=== PATIENT | female | born 1950 | race Caucasian/White ===

== ENCOUNTER 2023-04-12 18:22 | Inpatient (IN) | payer MEDICARE, OTHER ==
[~2023-04-12] VITALS: Ht 147.3 cm; Wt 80.7 kg
[2023-04-12 20:00] VITALS: BP_SYST 136; BP_SYST 139; BP_DIAS 64; BP_DIAS 94; PULSE 68; PULSE 70; RESP 18; TEMP 97; TEMP 98.1
[2023-04-12] MEDS: ATORVASTATIN CALCIUM 40MG TABLET PO SCH (22:01)
[2023-04-12] MEDS: OXYCODONE HCL 5MG TABLET PO PRN (22:02)
[2023-04-12] MEDS ORDERED: LEVETIRACETAM 500MG PREMIX 100 ML IV SCH (23:00)
[2023-04-12] MEDS ORDERED: ONDANSETRON HCL 4MG/2ML INJ IV PRN (23:00)
[2023-04-13] MEDS ORDERED: LEVETIRACETAM 500 MG in SODIUM CHLORIDE 0.9% 100 ML IV SCH ×2
[2023-04-13] MEDS: METOCLOPRAMIDE HCL 10MG/2ML VIAL IV SCH ×2 (01:08→05:55)
[2023-04-13] MEDS ORDERED: ATOR-2 PO (05:15)
[2023-04-13] MEDS ORDERED: ASPI-1406 PO (05:15)
[2023-04-13] MEDS ORDERED: LORA10TA7 PO (05:15)
[2023-04-13] MEDS ORDERED: LISI20TA31 PO (05:15)
[2023-04-13] MEDS ORDERED: MULT-622 PO (05:15)
[2023-04-13] MEDS ORDERED: ALEN70SO4 PO (05:15)
[2023-04-13] MEDS: OXYCODONE HCL 5MG TABLET PO PRN ×2 (06:04→18:31)
[2023-04-13 06:51] LABS: BASOPHILS % 0.4 % (0.0-2.0); EOSINOPHILS % 2.9 % (0.0-5.0); HEMATOCRIT. 38.8 % (36.0-48.0); HEMOGLOBIN. 13.4 g/dL (12.0-16.0); LYMPHOCYTES % 15.5 % (20.0-50.0); MEAN CORPUSCULAR HEMOGLOBIN 32.7 pg (28.0-32.0); MEAN CORPUSCULAR VOLUME 94.7 fL (81.0-99.0); MEAN PLATELET VOLUME 10.1 fl (7.4-10.4); MONOCYTES % 13.4 % (2.0-8.0); NEUTROPHILS % 67.8 % (40.0-76.0); PLATELET 181 x1000/uL (130-400); RED CELL DISTRIBUTION WIDTH 13.4 % (11.6-14.6)
[2023-04-13 08:00] VITALS: BP 115/87; PULSE 70; RESP 18; TEMP 97.3
[2023-04-13 08:02] LABS: CHLORIDE 99 mEq/L (98-107)
[2023-04-13] MEDS: LEVETIRACETAM 500MG TABLET PO SCH ×2 (09:16→21:11)
[2023-04-13] MEDS: ACETAMINOPHEN 325MG TABLET PO PRN (09:18)
[2023-04-13] MEDS: LISINOPRIL 40MG TABLET PO SCH (09:18)
[2023-04-13] MEDS ORDERED: NALOXONE HCL 0.4MG/ML VIAL IV PRN (14:30)
[2023-04-13 20:00] VITALS: BP 144/76; PULSE 81; RESP 18; TEMP 97.7
[2023-04-13] MEDS: ATORVASTATIN CALCIUM 40MG TABLET PO SCH (21:11)
[2023-04-14] MEDS: METOCLOPRAMIDE HCL 5MG TABLET PO PRN (02:45)
[2023-04-14] MEDS: OXYCODONE HCL 5MG TABLET PO PRN ×3 (02:47→18:59)
[2023-04-14 08:00] VITALS: BP 131/64; PULSE 64; RESP 20; TEMP 97.1
[2023-04-14] MEDS: LEVETIRACETAM 500MG TABLET PO SCH ×2 (08:12→21:19)
[2023-04-14] MEDS: LISINOPRIL 40MG TABLET PO SCH (08:12)
[2023-04-14 20:00] VITALS: BP 122/67; PULSE 66; RESP 17; TEMP 97.1
[2023-04-14] MEDS: ONDANSETRON HCL 4MG TABLET PO PRN (21:19)
[2023-04-14] MEDS: ATORVASTATIN CALCIUM 40MG TABLET PO SCH (21:19)
[2023-04-14] MEDS: MIRTAZAPINE 15MG TABLET PO SCH (21:20)
[2023-04-15 08:00] VITALS: BP 118/59; PULSE 71; RESP 14; TEMP 98.1
[2023-04-15] MEDS: LEVETIRACETAM 500MG TABLET PO SCH ×2 (08:39→21:08)
[2023-04-15] MEDS: LISINOPRIL 40MG TABLET PO SCH (08:40)
[2023-04-15] MEDS: OXYCODONE HCL 5MG TABLET PO PRN ×2 (14:08→18:14)
[2023-04-15] MEDS: ONDANSETRON HCL 4MG TABLET PO PRN (14:09)
[2023-04-15] MEDS: LACTULOSE 20G/30ML UDC PO SCH ×2 (16:58→21:08)
[2023-04-15] MEDS: DOCUSATE SODIUM 100MG CAPSULE PO SCH (16:59)
[2023-04-15 20:00] VITALS: BP 95/65; PULSE 88; RESP 19; TEMP 97.4
[2023-04-15] MEDS: ATORVASTATIN CALCIUM 40MG TABLET PO SCH (21:08)
[2023-04-15] MEDS: MIRTAZAPINE 15MG TABLET PO SCH (21:08)
[2023-04-16] MEDS: LACTULOSE 20G/30ML UDC PO SCH (00:39)
[2023-04-16] MEDS: ONDANSETRON HCL 4MG TABLET PO PRN ×2 (05:57→16:16)
[2023-04-16] MEDS: OXYCODONE HCL 5MG TABLET PO PRN ×2 (05:57→16:16)
[2023-04-16 06:46] LABS: CHLORIDE 94 mEq/L (98-107)
[2023-04-16 07:03] LABS: BASOPHILS % 0.4 % (0.0-2.0); EOSINOPHILS % 8.9 % (0.0-5.0); HEMOGLOBIN. 14.6 g/dL (12.0-16.0); LYMPHOCYTES % 16.8 % (20.0-50.0); MEAN CORPUSCULAR HEMOGLOBIN 32.3 pg (28.0-32.0); MEAN CORPUSCULAR VOLUME 94.8 fL (81.0-99.0); MONOCYTES % 13.3 % (2.0-8.0); NEUTROPHILS % 60.6 % (40.0-76.0); RED BLOOD CELL COUNT 4.53 mill/uL (4.2-5.4); RED CELL DISTRIBUTION WIDTH 13.5 % (11.6-14.6)
[2023-04-16 08:00] VITALS: BP 99/70; PULSE 77; RESP 17; TEMP 97.2
[2023-04-16] MEDS: LISINOPRIL 40MG TABLET PO SCH (09:00)
[2023-04-16] MEDS: DOCUSATE SODIUM 100MG CAPSULE PO SCH ×2 (09:30→17:07)
[2023-04-16] MEDS: LEVETIRACETAM 500MG TABLET PO SCH ×4 (09:30→21:03)
[2023-04-16] MEDS ORDERED: LACTULOSE 20G/30ML UDC PO SCH (11:00)
[2023-04-16] MEDS: SODIUM CHLORIDE 0.9% 1,000 ML IV SCH (12:30)
[2023-04-16] MEDS ORDERED: DOCUSATE SODIUM 100MG CAPSULE PO SCH (13:45)
[2023-04-16] MEDS ORDERED: BISACODYL 5MG TABLET PO PRN (13:45)
[2023-04-16 19:58] VITALS: BP 120/101; PULSE 81; RESP 17; TEMP 98
[2023-04-16] MEDS: MIRTAZAPINE 15MG TABLET PO SCH (21:04)
[2023-04-16] MEDS: ATORVASTATIN CALCIUM 40MG TABLET PO SCH (21:04)
[2023-04-17] MEDS: SODIUM CHLORIDE 0.9% 1,000 ML IV SCH ×2 (04:16→22:54)
[2023-04-17] MEDS: OXYCODONE HCL 5MG TABLET PO PRN (07:57)
[2023-04-17] MEDS: ONDANSETRON HCL 4MG TABLET PO PRN (07:57)
[2023-04-17 08:00] VITALS: BP 122/61; PULSE 85; RESP 17; TEMP 97.3
[2023-04-17] MEDS: DOCUSATE SODIUM 100MG CAPSULE PO SCH ×2 (08:22→16:27)
[2023-04-17] MEDS: LISINOPRIL 40MG TABLET PO SCH (08:26)
[2023-04-17] MEDS: ACETAMINOPHEN 325MG TABLET PO PRN (15:06)
[2023-04-17 20:05] VITALS: BP 104/65; PULSE 82; RESP 20; TEMP 97.3
[2023-04-17] MEDS: MIRTAZAPINE 15MG TABLET PO SCH (21:44)
[2023-04-17] MEDS: ATORVASTATIN CALCIUM 40MG TABLET PO SCH (21:45)
[2023-04-18] MEDS: ACETAMINOPHEN 325MG TABLET PO PRN ×2 (01:54→18:22)
[2023-04-18] MEDS: ONDANSETRON HCL 4MG TABLET PO PRN (01:55)
[2023-04-18] MEDS: NA PHOS,M-B/NA PHOS,DI-BA ENEMA 118ML PR PRN (05:10)
[2023-04-18 08:00] VITALS: BP 140/69; PULSE 68; RESP 20; TEMP 97.3
[2023-04-18] MEDS: LEVETIRACETAM 500MG TABLET PO SCH ×2 (08:29→21:49)
[2023-04-18] MEDS: LISINOPRIL 40MG TABLET PO SCH (08:30)
[2023-04-18] MEDS: DOCUSATE SODIUM 100MG CAPSULE PO SCH ×2 (08:30→17:08)
[2023-04-18] MEDS ORDERED: IPRATROPIUM/ALBUTEROL 0.5-3(2.5)MG/3ML NEB HHN PRN (10:30)
[2023-04-18 13:23] VITALS: PULSE 86; RESP 20; O2SAT 95
[2023-04-18] MEDS: IPRATROPIUM/ALBUTEROL 0.5-3(2.5)MG/3ML NEB HHN SCH ×3 (13:23→22:49)
[2023-04-18] MEDS: SODIUM CHLORIDE 0.9% 1,000 ML IV SCH ×2 (17:08→23:39)
[2023-04-18] MEDS: METOCLOPRAMIDE HCL 5MG TABLET PO PRN (18:22)
[2023-04-18] MEDS: ATORVASTATIN CALCIUM 40MG TABLET PO SCH (21:49)
[2023-04-18] MEDS: MIRTAZAPINE 15MG TABLET PO SCH (21:49)
[2023-04-18 22:49] VITALS: PULSE 71; RESP 16; O2SAT 96
[2023-04-19 01:51] VITALS: PULSE 70; RESP 16; O2SAT 96
[2023-04-19] MEDS: IPRATROPIUM/ALBUTEROL 0.5-3(2.5)MG/3ML NEB HHN SCH ×4 (01:51→20:28)
[2023-04-19 08:00] VITALS: BP 113/74; PULSE 85; RESP 18; TEMP 99
[2023-04-19] MEDS: DOCUSATE SODIUM 100MG CAPSULE PO SCH ×2 (09:10→17:00)
[2023-04-19] MEDS: LEVETIRACETAM 500MG TABLET PO SCH ×2 (09:10→21:38)
[2023-04-19] MEDS: LISINOPRIL 40MG TABLET PO SCH (09:11)
[2023-04-19] MEDS ORDERED: NALOXONE HCL 0.4MG/ML VIAL IV PRN (11:45)
[2023-04-19 14:47] LABS: CHLORIDE 103 mEq/L (98-107)
[2023-04-19] MEDS: ONDANSETRON HCL 4MG TABLET PO PRN ×2 (15:09→21:38)
[2023-04-19] MEDS: OXYCODONE HCL 5MG TABLET PO PRN ×2 (15:10→21:40)
[2023-04-19 20:09] VITALS: BP 120/88; PULSE 89; RESP 17; TEMP 97.5
[2023-04-19] MEDS: ATORVASTATIN CALCIUM 40MG TABLET PO SCH (21:38)
[2023-04-19] MEDS: MIRTAZAPINE 15MG TABLET PO SCH (21:39)
[2023-04-20] MEDS: ACETAMINOPHEN 325MG TABLET PO PRN ×2 (00:55→15:13)
[2023-04-20 08:00] VITALS: BP 103/55; PULSE 72; RESP 17; TEMP 97.7
[2023-04-20] MEDS: LEVETIRACETAM 500MG TABLET PO SCH ×2 (08:56→21:12)
[2023-04-20] MEDS: LISINOPRIL 40MG TABLET PO SCH (08:56)
[2023-04-20] MEDS: DOCUSATE SODIUM 100MG CAPSULE PO SCH ×2 (08:56→18:22)
[2023-04-20] MEDS: ONDANSETRON HCL 4MG TABLET PO PRN (15:12)
[2023-04-20 20:00] VITALS: BP 98/31; PULSE 78; RESP 17; TEMP 97.5
[2023-04-20 21:10] VITALS: BP 124/69; PULSE 70
[2023-04-20] MEDS: ATORVASTATIN CALCIUM 40MG TABLET PO SCH (21:12)
[2023-04-20] MEDS: OXYCODONE HCL 5MG TABLET PO PRN (21:12)
[2023-04-20] MEDS: MIRTAZAPINE 15MG TABLET PO SCH (21:12)
[2023-04-21] MEDS: OXYCODONE HCL 5MG TABLET PO PRN ×2 (06:11→15:11)
[2023-04-21] MEDS: ONDANSETRON HCL 4MG TABLET PO PRN (06:11)
[2023-04-21 08:00] VITALS: BP 103/64; PULSE 64; RESP 18; TEMP 98.1
[2023-04-21] MEDS: DOCUSATE SODIUM 100MG CAPSULE PO SCH ×2 (08:49→16:46)
[2023-04-21] MEDS: LISINOPRIL 40MG TABLET PO SCH (08:52)
[2023-04-21] MEDS: LEVETIRACETAM 500MG TABLET PO SCH ×2 (08:52→21:40)
[2023-04-21] MEDS: LACTULOSE 20G/30ML UDC PO PRN (14:05)
[2023-04-21 20:00] VITALS: BP 106/55; PULSE 80; RESP 18; TEMP 97.5
[2023-04-21] MEDS: ATORVASTATIN CALCIUM 40MG TABLET PO SCH (21:40)
[2023-04-21] MEDS: MIRTAZAPINE 15MG TABLET PO SCH (21:40)
[2023-04-22] MEDS: OXYCODONE HCL 5MG TABLET PO PRN ×2 (01:46→09:20)
[2023-04-22] MEDS: ONDANSETRON HCL 4MG TABLET PO PRN ×2 (01:46→12:38)
[2023-04-22 08:00] VITALS: BP 97/72; PULSE 78; RESP 17; TEMP 97.1
[2023-04-22] MEDS: LISINOPRIL 40MG TABLET PO SCH (09:00)
[2023-04-22] MEDS: DOCUSATE SODIUM 100MG CAPSULE PO SCH ×2 (09:19→18:02)
[2023-04-22] MEDS: LEVETIRACETAM 500MG TABLET PO SCH ×2 (09:19→21:32)
[2023-04-22] MEDS: LACTULOSE 20G/30ML UDC PO PRN (12:38)
[2023-04-22] MEDS: ACETAMINOPHEN 325MG TABLET PO PRN ×2 (12:38→21:36)
[2023-04-22] MEDS ORDERED: NITROGLYCERIN 0.4MG TABLET SL SL PRN (17:00)
[2023-04-22 20:00] VITALS: BP 109/56; PULSE 73; RESP 17; TEMP 97.4
[2023-04-22] MEDS: NA PHOS,M-B/NA PHOS,DI-BA ENEMA 118ML PR PRN (20:32)
[2023-04-22] MEDS: MIRTAZAPINE 15MG TABLET PO SCH (21:32)
[2023-04-22] MEDS: ATORVASTATIN CALCIUM 40MG TABLET PO SCH (21:32)
[2023-04-23 08:00] VITALS: BP 126/65; PULSE 77; RESP 18; TEMP 98.3
[2023-04-23] MEDS: LISINOPRIL 40MG TABLET PO SCH (08:33)
[2023-04-23] MEDS: LEVETIRACETAM 500MG TABLET PO SCH ×2 (08:33→21:44)
[2023-04-23] MEDS: DOCUSATE SODIUM 100MG CAPSULE PO SCH ×2 (08:34→16:19)
[2023-04-23] MEDS ORDERED: LACTULOSE 20G/30ML UDC PO SCH (09:00)
[2023-04-23] MEDS: ONDANSETRON HCL 4MG TABLET PO PRN (12:09)
[2023-04-23] MEDS: OXYCODONE HCL 5MG TABLET PO PRN (12:09)
[2023-04-23] MEDS: NA PHOS,M-B/NA PHOS,DI-BA ENEMA 118ML PR PRN (17:36)
[2023-04-23] MEDS ORDERED: OXYCODONE HCL/ACETAMINOPHEN 5/325MG TABLET PO PRN (19:30)
[2023-04-23 20:10] VITALS: BP 120/75; PULSE 82; RESP 18; TEMP 97.3
[2023-04-23] MEDS: MIRTAZAPINE 15MG TABLET PO SCH (21:44)
[2023-04-23] MEDS: ATORVASTATIN CALCIUM 40MG TABLET PO SCH (21:45)
[2023-04-24 08:00] VITALS: BP 109/64; PULSE 87; RESP 18; TEMP 97.9
[2023-04-24] MEDS ORDERED: NALOXONE HCL 0.4MG/ML VIAL IV PRN (09:45)
[2023-04-24] MEDS: DOCUSATE SODIUM 100MG CAPSULE PO SCH ×2 (10:31→17:50)
[2023-04-24] MEDS: LEVETIRACETAM 500MG TABLET PO SCH ×2 (10:31→21:52)
[2023-04-24] MEDS: POLYETHYLENE GLYCOL 3350 (17GM) 1 DOSE PACK PO SCH (10:31)
[2023-04-24] MEDS: LISINOPRIL 40MG TABLET PO SCH (10:31)
[2023-04-24 20:00] VITALS: BP 94/50; PULSE 85; RESP 17; TEMP 98.2
[2023-04-24] MEDS: ATORVASTATIN CALCIUM 40MG TABLET PO SCH (21:52)
[2023-04-24] MEDS: MIRTAZAPINE 15MG TABLET PO SCH (21:55)
[2023-04-25 08:22] VITALS: BP 127/77; PULSE 73; RESP 20; TEMP 98.2
[2023-04-25] MEDS: LEVETIRACETAM 500MG TABLET PO SCH (09:39)
[2023-04-25] MEDS: POLYETHYLENE GLYCOL 3350 (17GM) 1 DOSE PACK PO SCH (09:39)
[2023-04-25] MEDS: DOCUSATE SODIUM 100MG CAPSULE PO SCH ×2 (09:39→18:37)
[2023-04-25] MEDS: LISINOPRIL 40MG TABLET PO SCH (09:39)
[2023-04-25 20:00] VITALS: BP 98/56; PULSE 84; RESP 19; TEMP 97.5
[2023-04-26] MEDS: ONDANSETRON HCL 4MG TABLET PO PRN (08:51)
[2023-04-26] MEDS: ACETAMINOPHEN 325MG TABLET PO PRN ×2 (08:51→16:33)
[2023-04-26] MEDS: DOCUSATE SODIUM 100MG CAPSULE PO SCH ×2 (09:00→16:31)
[2023-04-26] MEDS: LISINOPRIL 40MG TABLET PO SCH (09:00)
[2023-04-26] MEDS: LEVETIRACETAM 500MG TABLET PO SCH ×3 (10:38→21:42)
[2023-04-26] MEDS: POLYETHYLENE GLYCOL 3350 (17GM) 1 DOSE PACK PO SCH (10:38)
[2023-04-26 19:54] VITALS: BP 117/69; PULSE 78; RESP 20; TEMP 97.3
[2023-04-26] MEDS: ATORVASTATIN CALCIUM 40MG TABLET PO SCH ×2 (21:41→21:43)
[2023-04-26] MEDS: MIRTAZAPINE 15MG TABLET PO SCH ×2 (21:42→21:43)
[2023-04-27 08:00] VITALS: BP 103/72; PULSE 103; RESP 18; TEMP 97.8
[2023-04-27] MEDS: LISINOPRIL 40MG TABLET PO SCH (09:00)
[2023-04-27] MEDS: LEVETIRACETAM 500MG TABLET PO SCH ×2 (10:20→21:49)
[2023-04-27] MEDS: POLYETHYLENE GLYCOL 3350 (17GM) 1 DOSE PACK PO SCH (10:20)
[2023-04-27] MEDS: DOCUSATE SODIUM 100MG CAPSULE PO SCH ×2 (10:20→17:16)
[2023-04-27] MEDS: ACETAMINOPHEN 325MG TABLET PO PRN (16:48)
[2023-04-27 20:03] VITALS: BP 104/62; PULSE 78; RESP 17; TEMP 97.1
[2023-04-27] MEDS: MIRTAZAPINE 15MG TABLET PO SCH (21:49)
[2023-04-27] MEDS: ATORVASTATIN CALCIUM 40MG TABLET PO SCH (21:49)
[2023-04-28 08:00] VITALS: BP 124/84; PULSE 103; RESP 18; TEMP 98.4
[2023-04-28] MEDS: POLYETHYLENE GLYCOL 3350 (17GM) 1 DOSE PACK PO SCH (09:25)
[2023-04-28] MEDS: LISINOPRIL 40MG TABLET PO SCH (09:26)
[2023-04-28] MEDS: DOCUSATE SODIUM 100MG CAPSULE PO SCH ×2 (09:26→18:05)
[2023-04-28] MEDS: LEVETIRACETAM 500MG TABLET PO SCH ×2 (09:26→20:44)
[2023-04-28 20:00] VITALS: BP 107/66; PULSE 72; RESP 18; TEMP 97.5
[2023-04-28] MEDS: MIRTAZAPINE 15MG TABLET PO SCH (20:44)
[2023-04-28] MEDS: ATORVASTATIN CALCIUM 40MG TABLET PO SCH (20:44)
[2023-04-29 08:00] VITALS: BP 125/79; PULSE 105; RESP 18; TEMP 97.7
[2023-04-29] MEDS: POLYETHYLENE GLYCOL 3350 (17GM) 1 DOSE PACK PO SCH (08:46)
[2023-04-29] MEDS: LEVETIRACETAM 500MG TABLET PO SCH ×2 (08:46→20:37)
[2023-04-29] MEDS: DOCUSATE SODIUM 100MG CAPSULE PO SCH ×2 (08:46→18:11)
[2023-04-29] MEDS: LISINOPRIL 40MG TABLET PO SCH (08:47)
[2023-04-29] MEDS: ACETAMINOPHEN 325MG TABLET PO PRN (08:52)
[2023-04-29] MEDS: LACTULOSE 20G/30ML UDC PO PRN (14:11)
[2023-04-29 20:00] VITALS: BP 122/59; PULSE 79; RESP 18; TEMP 97.8
[2023-04-29] MEDS: MIRTAZAPINE 15MG TABLET PO SCH (20:37)
[2023-04-29] MEDS: ATORVASTATIN CALCIUM 40MG TABLET PO SCH (20:37)
[2023-04-30 08:00] VITALS: BP 121/73; PULSE 73; RESP 20; TEMP 96.9
[2023-04-30] MEDS: LEVETIRACETAM 500MG TABLET PO SCH ×2 (08:47→21:17)
[2023-04-30] MEDS: POLYETHYLENE GLYCOL 3350 (17GM) 1 DOSE PACK PO SCH (08:47)
[2023-04-30] MEDS: LISINOPRIL 40MG TABLET PO SCH (08:47)
[2023-04-30] MEDS: DOCUSATE SODIUM 100MG CAPSULE PO SCH ×2 (08:47→17:54)
[2023-04-30 20:00] VITALS: BP 96/56; PULSE 82; RESP 18; TEMP 97.5
[2023-04-30] MEDS: MIRTAZAPINE 15MG TABLET PO SCH (21:17)
[2023-04-30] MEDS: ATORVASTATIN CALCIUM 40MG TABLET PO SCH (21:17)
[2023-05-01 08:00] VITALS: BP 99/69; PULSE 67; RESP 18; TEMP 97.4
[2023-05-01] MEDS: POLYETHYLENE GLYCOL 3350 (17GM) 1 DOSE PACK PO SCH (09:30)
[2023-05-01] MEDS: LISINOPRIL 40MG TABLET PO SCH (09:31)
[2023-05-01] MEDS: LEVETIRACETAM 500MG TABLET PO SCH ×2 (09:31→21:16)
[2023-05-01] MEDS: DOCUSATE SODIUM 100MG CAPSULE PO SCH ×2 (09:31→17:00)
[2023-05-01 20:00] VITALS: BP 100/50; PULSE 79; RESP 18; TEMP 97.9
[2023-05-01] MEDS: ATORVASTATIN CALCIUM 40MG TABLET PO SCH (21:15)
[2023-05-01] MEDS: MIRTAZAPINE 15MG TABLET PO SCH (21:15)
[2023-05-01] MEDS: ACETAMINOPHEN 325MG TABLET PO PRN (21:16)
[2023-05-02 08:00] VITALS: BP 118/66; PULSE 75; RESP 18; TEMP 97
[2023-05-02] MEDS: DOCUSATE SODIUM 100MG CAPSULE PO SCH ×2 (09:43→17:00)
[2023-05-02] MEDS: POLYETHYLENE GLYCOL 3350 (17GM) 1 DOSE PACK PO SCH (09:43)
[2023-05-02] MEDS: LEVETIRACETAM 500MG TABLET PO SCH ×2 (09:44→22:01)
[2023-05-02] MEDS: LISINOPRIL 40MG TABLET PO SCH (09:44)
[2023-05-02 20:00] VITALS: BP 117/65; PULSE 77; RESP 18; TEMP 97.7
[2023-05-02] MEDS: MIRTAZAPINE 15MG TABLET PO SCH (22:01)
[2023-05-02] MEDS: ATORVASTATIN CALCIUM 40MG TABLET PO SCH (22:01)
[2023-05-03 07:53] VITALS: BP 121/59; PULSE 71; RESP 18; TEMP 96.5
[2023-05-03] MEDS: DOCUSATE SODIUM 100MG CAPSULE PO SCH ×2 (08:24→18:18)
[2023-05-03] MEDS: LISINOPRIL 40MG TABLET PO SCH (08:25)
[2023-05-03] MEDS: POLYETHYLENE GLYCOL 3350 (17GM) 1 DOSE PACK PO SCH (08:25)
[2023-05-03] MEDS: LEVETIRACETAM 500MG TABLET PO SCH ×2 (08:25→21:22)
[2023-05-03 20:00] VITALS: BP 109/47; PULSE 77; RESP 17; TEMP 97.1
[2023-05-03] MEDS: MIRTAZAPINE 15MG TABLET PO SCH (21:22)
[2023-05-03] MEDS: ATORVASTATIN CALCIUM 40MG TABLET PO SCH (21:22)
[2023-05-04 08:00] VITALS: BP 136/70; PULSE 86; RESP 18; TEMP 97.6
[2023-05-04] MEDS: POLYETHYLENE GLYCOL 3350 (17GM) 1 DOSE PACK PO SCH (09:21)
[2023-05-04] MEDS: LEVETIRACETAM 500MG TABLET PO SCH ×2 (09:21→22:40)
[2023-05-04] MEDS: DOCUSATE SODIUM 100MG CAPSULE PO SCH ×2 (09:22→12:26)
[2023-05-04] MEDS: LISINOPRIL 40MG TABLET PO SCH (09:22)
[2023-05-04 20:00] VITALS: BP 121/67; PULSE 75; RESP 18; TEMP 97.2
[2023-05-04] MEDS: ATORVASTATIN CALCIUM 40MG TABLET PO SCH (22:39)
[2023-05-04] MEDS: MIRTAZAPINE 15MG TABLET PO SCH (22:39)
[2023-05-05 08:00] VITALS: BP 124/77; PULSE 75; RESP 18; TEMP 97.3
[2023-05-05] MEDS: POLYETHYLENE GLYCOL 3350 (17GM) 1 DOSE PACK PO SCH (08:28)
[2023-05-05] MEDS: LEVETIRACETAM 500MG TABLET PO SCH (08:28)
[2023-05-05] MEDS: LISINOPRIL 40MG TABLET PO SCH (08:28)
[2023-05-05] MEDS: DOCUSATE SODIUM 100MG CAPSULE PO SCH (08:28)
[2023-05-05 12:28] VITALS: BP 124/77; PULSE 75; TEMP 97.3; O2SAT 99
== END 2023-05-05 13:10 | disposition home health service (06) | DRG 64 ==
LOC: EDBD 18:22 → 4WST 18:22
PROVIDERS: ADMIT Psychiatry & Neurology Neurology; ATTEND Hospitalist
PROC: 4A00X4Z Measurement of Central Nervous Electrical Activity, External Approach (ICD-10-PCS; principal; 2023-04-14)
DX: I61.1 Nontraumatic intracerebral hemorrhage in hemisphere, cortical (principal); G93.6 Cerebral edema; E44.0 Moderate protein-calorie malnutrition; E87.1 Hypo-osmolality and hyponatremia; G93.40 Encephalopathy, unspecified; E85.4 Organ-limited amyloidosis; G81.94 Hemiplegia, unspecified affecting left nondominant side; I10 Essential (primary) hypertension; M81.0 Age-related osteoporosis without current pathological fracture; E87.6 Hypokalemia; D72.829 Elevated white blood cell count, unspecified; F39 Unspecified mood [affective] disorder; R56.9 Unspecified convulsions; R32 Unspecified urinary incontinence; K59.00 Constipation, unspecified; Z91.81 History of falling; Z68.37 Body mass index [BMI] 37.0-37.9, adult; Z79.899 Other long term (current) drug therapy
CPT/HCPCS: 36415; 73030; 73080; 73090; 80048; 80053; 83735; 85025; 92523; 92610; 93970; 94640; 95816; 97110; 97112; 97116; 97163; 97167; 97530; 97535; A4565; A6261; C1893; J1953; J2765; J7030; J8597; Q0162